=== PATIENT | female | born 1990 | race African-American/Black ===

== ENCOUNTER 2016-05-04 16:25 | Emergency (ER) | payer MEDICAID ==
[~2016-05-04] VITALS: Ht 160 cm; Wt 75.0 kg
[~2016-05-04 16:25] MED LIST: ALBU6.7H INH; BECL0.07 INH; ELVI1TAB4 PO; ELVITAB PO; FLUC200T63 PO; LEVA750T PO; PRED20 PO; SULF-154 PO; ZITH600T PO; [UNRECOGNIZED DRUG - OTHER] SWISH-SWAL
[2016-05-04 16:28] VITALS: BP 176/111; PULSE 100; RESP 20; TEMP 98.4; O2SAT 92
[2016-05-04 16:45] VITALS: RESP 16; O2SAT 92
[2016-05-04] MEDS ORDERED: methylPREDNISolone SOD SUCC 125 MG/2 ML VIAL IVP ONE (17:00)
[2016-05-04] MEDS: RESP: ALBUTEROL 2.5 MG/3 ML NEB (SCH) INH (17:07)
--- NOTE | 2016-05-04 17:08 | PD ---
HPI Chief Complaint: Respiratory Symptoms Time Seen by Provider: 17:03 Travel History International Travel<30 days: No Contact w/Intl Traveler<30days: No Traveled to known affect area: No History of Present Illness HPI 25-year-old female that presents to the ED for evaluation of shortness of breath secondary to asthma and an itchy rash. Per patient she's had the shortness of breath with asthma all her life but today she's been having worsening symptoms. Per patient she use her nebulizer this morning with some relief but per patient he always comes back. Per patient she relates that she needs to be put on steroids. She does have a history of HIV and states been compliant with her medications. Follows with infectious disease. She does not remember her CD4 count. She denies any fevers chills or sweats. He states having some mild chest pain from the cough. Per patient he feels similar to her normal asthma exacerbations. She denies any abdominal pain. No nausea or vomiting. She denies any urinary or bowel movement issues. No . Per patient one of her family members had a child that stays in her house and apparently she ended up having some sort of insect bite like lesions that were very itchy and per patient she developed some itchy lesions on her skin for the past couple days. Per patient she's not sure if is related but she's never had this before. She is not sure what the family member had. Denies any new medications. No new soaps or creams or clothes. No recent travel. PFSH Past Medical History Anemia: Yes Asthma: Yes Autoimmune Disease: Yes (HIV Dx age 18) Cancer: No Cardiovascular Problems: No COPD: No Cerebrovascular Accident: No Diminished Hearing: No Endocrine: No Genitourinary: No Headaches: Yes Immune Disorder: No Musculoskeletal: No Neurologic: Yes Psychiatric: No Reproductive: No Respiratory: Yes Migraines: No Pneumonia: Yes Seizures: No Sleep Apnea: No ?: Not : 0 Para: 0 Miscarriage: 0 : 0 Past Surgical History AICD: No Arteriovenous Shunt: No Insulin Pump: No Joint Replacement: No Pacemaker: No Other Surgery: No Social History Alcohol Use: No Tobacco Use: No Substance Use: No Allergies-Medications (Allergen,Severity, Reaction): Coded Allergies: Amoxicillin (Verified Allergy, Intermediate, 05/04/16) *MDRO Multi-Drug Resistant Organism (Verified Allergy, Unknown, 05/04/16) MRSA 12/2012 Reported Meds & Prescriptions Reported Meds & Active Scripts Active Tessalon Perles (Benzonatate) 100 Mg Cap 100 Mg PO TID PRN Vistaril (Hydroxyzine Pamoate) 25 Mg Cap 25 Mg PO Q6H PRN Bactrim DS (Sulfamethoxazole-Trimethoprim) 800-160 Mg Tab 1 Tab PO BID 7 Days Prednisone 20 Mg Tab 20 Mg PO BID Proair Hfa 8.5 GM Inh (Albuterol Sulfate) 90 Mcg/Act Aer 2 Puff INH Q4-6H PRN 108 mcg/actuation Elimite Topical (Permethrin) 5% Cream 1 Applic TOPICAL ONCE Reported Albuterol Neb (Albuterol Sulfate) 2.5 Mg/3 Ml Neb Unknown Dose NEB DIRECTED PRN While awake Stribild (Ftqrltngdrnw-Wlfpknfipu-Hzzkqrbkkvhs-Tenofvir) [phone] Mg Tab 1 Tab PO HS With food Review of Systems Except as stated in HPI: all other systems reviewed are Neg Physical Exam Narrative GENERAL: Well-nourished, well-developed patient in no apparent distress. SKIN: Warm and dry. HEAD: Atraumatic. Normocephalic. EYES: Pupils equal and round reactive to light and accommodation. No scleral icterus. No injection or drainage. ENT: No nasal bleeding or discharge. Mucous membranes pink and moist. TMs are clear with no sign of infection or perforation. No mastoid tenderness. Ear canals are intact bilaterally. No lymphadenopathy. Nostril mucosa is red and moist with clear mucus noted. No sinus tenderness to palpation noted. Tonsils are not enlarged or swollen. No ulvua Deviation. Tongue is midline. NECK: Trachea midline. No JVD. No meningeal signs noted CARDIOVASCULAR: Regular rate and rhythm. No murmurs, S3, S4. RESPIRATORY: No accessory muscle use. Wheezings heard in all lung [place]. Breath sounds equal bilaterally. Data Data Last Documented VS Vital Signs Date Time Temp Pulse Resp B/P Pulse Ox O2 Delivery O2 Flow Rate FiO2 05/04/16 19:15 120 16 118/67 97 Nasal Cannula 2 05/04/16 16:28 98.4 Orders Electrocardiogram (05/04/16 ) Basic Metabolic Panel (Bmp) (05/04/16 16:56) Complete Blood Count With Diff (05/04/16 16:56) Chest, Single Ap (05/04/16 16:56) Ecg Monitoring (05/04/16 16:56) Iv Access Insert/Monitor (05/04/16 16:56) Oximetry (05/04/16 16:56) Methylprednisolone So Succ Inj (Solumedr (05/04/16 17:00) Albuterol Neb (Albuterol Neb) (05/04/16 17:00) Labs Laboratory Tests Test 05/04/16 05/04/16 17:05 18:51 White Blood Count 5.4 TH/MM3 Red Blood Count 4.01 MIL/MM3 Hemoglobin 11.4 GM/DL Hematocrit 33.7 % Mean Corpuscular Volume 84.9 FL Mean Corpuscular Hemoglobin 29.0 PG Mean Corpuscular Hemoglobin 33.9 % Concent Red Cell Distribution Width 15.4 % Platelet Count 136 TH/MM3 Mean Platelet Volume 12.0 FL Neutrophils (%) (Auto) 67.4 % Lymphocytes (%) (Auto) 20.8 % Monocytes (%) (Auto) 7.7 % Eosinophils (%) (Auto) 3.2 % Basophils (%) (Auto) 0.9 % Neutrophils # (Auto) 3.7 TH/MM3 Lymphocytes # (Auto) 1.1 TH/MM3 Monocytes # (Auto) 0.4 TH/MM3 Eosinophils # (Auto) 0.2 TH/MM3 Basophils # (Auto) 0.1 TH/MM3 CBC Comment DIFF FINAL Differential Comment Hematology Comments Sodium Level 138 MEQ/L Potassium Level 5.6 MEQ/L Chloride Level 106 MEQ/L Carbon Dioxide Level 20.9 MEQ/L Anion Gap 11 MEQ/L Blood Urea Nitrogen 10 MG/DL Creatinine 0.80 MG/DL Estimat Glomerular Filtration 105 ML/MIN Rate Random Glucose 103 MG/DL Calcium Level 8.5 MG/DL [facility] Medical Decision Making Medical Screen Exam Complete: Yes Emergency Medical Condition: Yes Medical Record Reviewed: Yes Interpretation(s) EKG shows sinus tachycardia but no sign of acute ischemia or arrhythmia read by me and attending. CBC & BMP Diagram 05/04/16 17:05 05/04/16 18:51 Differential Diagnosis Asthma exacerbation versus asthma versus bronchitis versus COPD versus chest pain versus pneumonia Narrative Course 25-year-old female that presents to the ED for evaluation of asthma exacerbation and itchy rash. Patient was properly examined and was found to have signs and symptoms consistent appears to be asthma exacerbation with scabies. Her condition this time is for labs and imaging as well as breathing treatments. Patient agrees to proceed. Chest x-ray was negative for acute disease. Labs did show slight hyperkalemia but there was a lot of hemolyzes per lab report. Patient apparently had to have 3 different problems all hemolyzed. Patient has no changes of hyperkalemia on EKG. I do not believe that this is a true value. Case discussed with Dr. Ramsay who agrees with plan. I will start patient on Bactrim to cover for PCP although less likely. This appears to me to be bronchitis with asthma exacerbation. Patient was given prednisone, albuterol inhaler, permethrin cream for the scabies, Tessalon Perles for the cough. Vistaril for the itch. Patient was told to follow closely with PCP. See ED for any worsening symptoms. Diagnosis Primary Impression: Asthma exacerbation Additional Impression: Scabies Patient Instructions: General Instructions Additional Instructions: Take medications as prescribed. Follow with PCP. See ED for any worsening symptoms. Med/Other Pt SpecificInfo: Prescription(s) given Scripts Benzonatate (Tessalon Perles)100 Mg Nzl300 Mg PO TID PRN (COUGH) #20 CAP Ref 0 Prov:Luis Goddard MD 05/04/16 Hydroxyzine Pamoate (Vistaril)25 Mg Cap25 Mg PO Q6H PRN (ITCHING) #15 CAP Ref 0 Prov:Luis Goddard MD 05/04/16 Sulfamethoxazole-Trimethoprim (Bactrim DS)800-160 Mg Tab1 Tab PO BID 7 Days Prov:Luis Goddard MD 05/04/16 Prednisone 20 Mg Tab20 Mg PO BID #10 TAB Prov:Luis Goddard MD 05/04/16 Albuterol 8.5 GM Inh (Proair Hfa 8.5 GM Inh)90 Mcg/Act Aer2 Puff INH Q4-6H PRN ( SHORTNESS OF BREATH) #1 INHALER 108 mcg/actuation Prov:Luis Goddard MD 05/04/16 Permethrin Topical (Elimite Topical)5% Cream1 Applic TOPICAL ONCE #1 TUBE Ref 0 Prov:Luis Goddard MD 05/04/16 Disposition: 01 DISCHARGE HOME Condition: Stable Brando Howell May 04, 2016 17:08
[2016-05-04 17:17] LABS: AUTOMATED NEUTROPHIL # 3.7 TH/MM3 (1.8-7.7); BASOPHIL # 0.1 TH/MM3 (0-0.2); BASOPHIL % 0.9 % (0.0-2.0); EOSINOPHIL # 0.2 TH/MM3 (0-0.4); EOSINOPHIL % 3.2 % (0.0-4.0); LYMPH % 20.8 % (9.0-44.0); LYMPHOCYTE # 1.1 TH/MM3 (1.0-4.8); MEAN CELL VOLUME 84.9 FL (80.0-100.0); MONO % 7.7 % (0.0-8.0); NEUT % 67.4 % (16.0-70.0); PLATELET COUNT 136 TH/MM3 (150-450); RED BLOOD COUNT 4.01 MIL/MM3 (4.00-5.30); RED CELL DISTRIBUTION WIDTH 15.4 % (11.6-17.2); WHITE BLOOD COUNT 5.4 TH/MM3 (4.0-11.0)
--- NOTE | 2016-05-04 17:23 | RADRPT ---
EXAM DATE/TIME: 05/04/2016 17:06 [facility] COMPARISON: CHEST SINGLE AP, August 27, 2015, 8:37. INDICATIONS : Cough for over one year with history of asthma. MEDICAL HISTORY : Asthma SURGICAL HISTORY : ENCOUNTER: Initial ACUITY: >1 year PAIN SCORE: 0/10 LOCATION: Bilateral chest FINDINGS: Examination is performed with patients bra on. A single view of the chest demonstrates the lungs to be symmetrically aerated without evidence of mass, infiltrate or effusion. The cardiomediastinal con tours are unremarkable. Healed fractures of the posterolateral right 6th and 7th ribs.. CONCLUSION: The lungs are clear. The no evidence of pneumothorax. Blake Ramirez MD on May 04, 2016 at 17:20 Board Certified Radiologist. This report was verified electronically.
[2016-05-04 17:31] LABS: HEMATOCRIT 33.7 % (35.0-46.0); HEMO FLAGS DIFF FINAL; MEAN CORPUSCULAR HGB CONC 33.9 % (32.0-36.0)
[2016-05-04] MEDS ORDERED: ELVITAB PO (17:36)
[2016-05-04] MEDS ORDERED: ALBU0.08 NEB (17:39)
[2016-05-04] MEDS ORDERED: AZIT250T3 PO (18:20)
[2016-05-04] MEDS ORDERED: PERM5CRE11 TOPICAL (18:20)
[2016-05-04] MEDS ORDERED: PRED20 PO (18:20)
[2016-05-04] MEDS ORDERED: ALBUAER3 INH (18:20)
[2016-05-04 19:15] VITALS: BP 118/67; PULSE 120; RESP 16; O2SAT 97
[2016-05-04 19:40] LABS: BICARBONATE 20.9 MEQ/L (21.0-32.0)
[2016-05-04 19:43] LABS: POTASSIUM 5.6 MEQ/L (3.5-5.1)
[2016-05-04] MEDS ORDERED: BENZ100 PO (19:54)
[2016-05-04] MEDS ORDERED: VIST25CA PO (19:54)
[2016-05-04] MEDS ORDERED: BACT800T5 PO (19:54)
--- NOTE | 2016-05-04 21:06 | EKG ---
Date Performed: 05/04/2016 Time Performed: 16:48:29 PTAGE: 25 years EKG: SINUS TACHYCARDIA WITH SINUS ARRHYTHMIA ABNORMAL RHYTHM ECG PREVIOUS TRACING : 08/31/2015 09.40 No significant change from previous tracing noted. DOCTOR: Ming Macias Interpretating Date/Time 05/04/2016 21:05:53
== END 2016-05-04 20:08 | disposition home or self-care (01) ==
LOC: NEPC 16:25
DX: J45.901 Unspecified asthma with (acute) exacerbation (principal); B86 Scabies; R07.9 Chest pain, unspecified; R94.31 Abnormal electrocardiogram [ECG] [EKG]; Z21 Asymptomatic human immunodeficiency virus [HIV] infection status; Z86.2 Personal history of diseases of the blood and blood-forming organs and certain disorders involving the immune mechanism; Z86.69 Personal history of other diseases of the nervous system and sense organs; Z87.09 Personal history of other diseases of the respiratory system
CPT/HCPCS: 71010; 80048; 85025; 93005; 94640; 94664; 96374; 99285; J2930; J7613

== ENCOUNTER 2016-05-23 23:47 | Emergency (ER) | payer MEDICAID ==
[~2016-05-23] VITALS: Ht 162.6 cm; Wt 74.0 kg
[~2016-05-23 23:47] MED LIST changes: +ALBU0.08 NEB; -ALBU6.7H INH; +ALBUAER3 INH; +BACT800T5 PO; -BECL0.07 INH; +BENZ100 PO; -ELVI1TAB4 PO; -FLUC200T63 PO; -LEVA750T PO; +PERM5CRE11 TOPICAL; -SULF-154 PO; +VIST25CA PO; -ZITH600T PO; -[UNRECOGNIZED DRUG - OTHER] SWISH-SWAL
[2016-05-23 23:54] VITALS: BP 126/82; PULSE 98; RESP 18; TEMP 98.2; O2SAT 96
--- NOTE | 2016-05-24 03:30 | RADRPT ---
EXAM DATE/TIME: 05/24/2016 03:08 [facility] COMPARISON: CHEST PA & LAT, August 31, 2015, 10:27. INDICATIONS : Cough. MEDICAL HISTORY : Asthma. SURGICAL HISTORY : None. ENCOUNTER: Initial ACUITY: 1 day PAIN SCORE: 0/10 LOCATION: Bilateral chest FINDINGS: PA and lateral views of the chest demonstrate the lungs to be symmetrically aerated without evidence of mass, infiltrate or effusion. The cardiomediastinal contours are unremarkable. Osseous structure s demonstrate old right-sided rib fractures. CONCLUSION: 1. No acute cardiopulmonary disease. Ronan Sanders MD on May 24, 2016 at 3:28 Board Certified Radiologist. This report was verified electronically.
--- NOTE | 2016-05-24 03:53 | PD ---
HPI . Hemoptysis Chief Complaint: Abdominal Pain Time Seen by Provider: 02:36 Travel History International Travel<30 days: No Contact w/Intl Traveler<30days: No Traveled to known affect area: No History of Present Illness HPI Patient presents stating that she has a history of asthma and always coughs up mucus. She states that her mucous has been blood-tinged tonight. She states that she otherwise feels well. She complained of abdominal pain in triage. PFSH Past Medical History Anemia: Yes Asthma: Yes Autoimmune Disease: Yes (HIV Dx age 18) Cancer: No Cardiovascular Problems: No COPD: No Cerebrovascular Accident: No Diminished Hearing: No Endocrine: No Genitourinary: No Headaches: Yes Immune Disorder: No Musculoskeletal: No Neurologic: Yes Psychiatric: No Reproductive: No Respiratory: Yes Migraines: No Pneumonia: Yes Seizures: No Sleep Apnea: No ?: Unknown LMP: 2 MONTHS AGO--STS SHE DOESN'T HAVE SEX WITH MALES : 0 Para: 0 Miscarriage: 0 : 0 Past Surgical History Surgical History: No Previous Surgery AICD: No Arteriovenous Shunt: No Insulin Pump: No Joint Replacement: No Pacemaker: No Other Surgery: No Social History Alcohol Use: No Tobacco Use: No Substance Use: No Allergies-Medications (Allergen,Severity, Reaction): Coded Allergies: Amoxicillin (Verified Allergy, Intermediate, 05/24/16) *MDRO Multi-Drug Resistant Organism (Verified Allergy, Unknown, 05/24/16) MRSA 12/2012 Reported Meds & Prescriptions Reported Meds & Active Scripts Active Proair Hfa 8.5 GM Inh (Albuterol Sulfate) 90 Mcg/Act Aer 2 Puff INH Q4-6H PRN 108 mcg/actuation Review of Systems Except as stated in HPI: all other systems reviewed are Neg General / Constitutional: No: Fever, Chills HENT: Positive: Congestion Respiratory: Positive: Cough, Hemoptysis Gastrointestinal: Positive: Abdominal Pain, No: Nausea, Vomiting, Diarrhea Physical Exam Narrative GENERAL: Healthy-appearing woman lying on the stretcher in no acute distress. SKIN: Warm and dry. HEAD: Atraumatic. Normocephalic. EYES: Pupils equal and round. ENT: No nasal bleeding or discharge. Mucous membranes pink and moist. She has some edema of the nasal mucosa and some clear rhinorrhea. NECK: Trachea midline. Neck is supple. CARDIOVASCULAR: Regular rate and rhythm. Heart sounds are normal. RESPIRATORY: No accessory muscle use. Lungs are clear. GASTROINTESTINAL: Abdomen soft, non-tender, nondistended. MUSCULOSKELETAL: No obvious deformities. No edema. NEUROLOGICAL: Awake and alert. No obvious cranial nerve deficits. Motor grossly within normal limits. Normal speech. PSYCHIATRIC: Appropriate mood and affect; insight and judgment normal. Data Data Last Documented VS Vital Signs Date Time Temp Pulse Resp B/P Pulse Ox O2 Delivery O2 Flow Rate FiO2 05/23/16 23:54 98.2 98 18 126/82 96 Room Air Orders Chest, Pa & Lat (05/24/16 02:36) Ed Urine Pregnancytest Poc (05/24/16 02:36) MDM Medical Decision Making Medical Screen Exam Complete: Yes Emergency Medical Condition: Yes Differential Diagnosis Differential diagnosis includes but is not limited to viral respiratory illness , bronchitis, pneumonia, allergies, CHF, asthma/COPD. Narrative Course Patient presents for evaluation of hemoptysis. She has been here for a few hours and has had no significant hemoptysis. Last Impressions Chest X-Ray 05/24/16 0236 Signed Impressions: Service Date/Time: Tuesday, May 24, 2016 03:08 - CONCLUSION: 1. No acute cardiopulmonary disease. Ronan Sanders MD The chest x-ray was independently viewed by me. Diagnosis Primary Impression: Cough Additional Impression: Hemoptysis Patient Instructions: Acute Cough (GEN), General Instructions Disposition: 01 DISCHARGE HOME Condition: Stable Xenia Esparza MD May 24, 2016 03:53
== END 2016-05-24 04:24 | disposition home or self-care (01) ==
LOC: NEPC 23:47
DX: R04.2 Hemoptysis (principal)
CPT/HCPCS: 71020; 99283

== ENCOUNTER 2016-07-02 13:43 | Emergency (ER) | payer MEDICAID ==
[~2016-07-02] VITALS: Ht 162.6 cm; Wt 70.0 kg
[~2016-07-02 13:43] MED LIST changes: -ALBU0.08 NEB; -BACT800T5 PO; -BENZ100 PO; -ELVITAB PO; -PERM5CRE11 TOPICAL; -PRED20 PO; -VIST25CA PO
[2016-07-02 13:45] VITALS: BP 148/70; PULSE 120; RESP 18; TEMP 97.9; O2SAT 97
== END 2016-07-02 15:45 | disposition left against medical advice (07) ==
LOC: NED 13:43
DX: R10.9 Unspecified abdominal pain (principal)
CPT/HCPCS: 99281

== ENCOUNTER 2016-09-01 14:35 | Emergency (ER) | payer MEDICAID ==
[~2016-09-01] VITALS: Ht 160 cm; Wt 75.0 kg
[2016-09-01 14:36] VITALS: BP 140/89; PULSE 94; RESP 16; TEMP 97.8; O2SAT 99
--- NOTE | 2016-09-01 14:45 | PD ---
HPI . Left-sided abdominal pain Chief Complaint: Flank/Kidney Pain Time Seen by Provider: 14:42 Travel History International Travel<30 days: No Contact w/Intl Traveler<30days: No Traveled to known affect area: No History of Present Illness HPI 25-year-old female with history of HIV, asthma and kidney stones here with complaints of left-sided flank pain that onset early this morning. Patient says that she had similar happened back in 2009 and was diagnosed with kidney stones. She tells me the pain was very severe and she took Tylenol PM and now her pain is 6/10 without any further radiation other than in the left flank. She denies any dysuria, increased urinary frequency, fever or chills. She has no other complaints. PFSH Past Medical History Anemia: Yes Asthma: Yes Autoimmune Disease: Yes (HIV Dx age 18) Cancer: No Cardiovascular Problems: No COPD: No Cerebrovascular Accident: No Diminished Hearing: No Endocrine: No Genitourinary: No Headaches: Yes Immune Disorder: No Musculoskeletal: No Neurologic: Yes Psychiatric: No Reproductive: No Respiratory: Yes Migraines: No Pneumonia: Yes Seizures: No Sleep Apnea: No ?: Not LMP: THIS MONTH : 0 Para: 0 Miscarriage: 0 : 0 Past Surgical History AICD: No Arteriovenous Shunt: No Insulin Pump: No Joint Replacement: No Pacemaker: No Other Surgery: No Social History Alcohol Use: No Tobacco Use: No Substance Use: No Allergies-Medications (Allergen,Severity, Reaction): Coded Allergies: Amoxicillin (Verified Allergy, Intermediate, 09/01/16) *MDRO Multi-Drug Resistant Organism (Verified Allergy, Unknown, 09/01/16) MRSA 12/2012 Reported Meds & Prescriptions Reported Meds & Active Scripts Active Flomax (Tamsulosin HCl) 0.4 Mg Cap 0.4 Mg PO HS Bactrim DS (Sulfamethoxazole-Trimethoprim) 800-160 Mg Tab 1 Tab PO BID Percocet (Oxycodone-Acetaminophen) 5-325 mg Tab 1 Tab PO Q6H PRN Proair Hfa 8.5 GM Inh (Albuterol Sulfate) 90 Mcg/Act Aer 2 Puff INH Q4-6H PRN 108 mcg/actuation Review of Systems General / Constitutional: No: Fever Eyes: No: Visual changes HENT: No: Headaches Cardiovascular: No: Chest Pain or Discomfort Respiratory: No: Shortness of Breath Gastrointestinal: Positive: Abdominal Pain (left sided), No: Nausea, Vomiting , Diarrhea, Constipation Genitourinary: No: Dysuria Musculoskeletal: No: Pain Skin: No Rash Neurologic: No: Weakness Psychiatric: No: Depression Endocrine: No: Polydipsia Hematologic/Lymphatic: No: Easy Bruising Physical Exam Narrative GENERAL: AAO x 3, no acute distress, Well-nourished, well-developed patient. SKIN: Warm and dry. No visible rashes or bruising. HEAD: Normocephalic and atraumatic. EYES: No scleral icterus. No injection or drainage. ENT: No nasal drainage noted. Mucous membranes pink. Airway patent. NECK: Supple, trachea midline. No JVD. CARDIOVASCULAR: Regular rate and rhythm without murmurs, gallops, or rubs. RESPIRATORY: Breath sounds equal bilaterally. No accessory muscle use. No rhonchi or rales. GASTROINTESTINAL: Abdomen soft, + tenderness to left mid/lower abdomen with deep palpation. EXTREMITIES: No cyanosis or edema. BACK: Nontender without obvious deformity. No CVA tenderness. PSYCH: AAO x 3, normal affect. Data Data Last Documented VS Vital Signs Date Time Temp Pulse Resp B/P Pulse Ox O2 Delivery O2 Flow Rate FiO2 09/01/16 17:22 75 14 115/89 96 Room Air 09/01/16 14:36 97.8 Orders Complete Blood Count With Diff (09/01/16 14:45) Comprehensive Metabolic Panel (09/01/16 14:45) Urinalysis - C+S If Indicated (09/01/16 14:45) Ct Abd/Pel W Iv Contrast(Rout) (09/01/16 14:45) Iv Access Insert/Monitor (09/01/16 14:45) NPO (09/01/16 14:45) Ed Urine Pregnancytest Poc (09/01/16 14:45) Ibuprofen (Motrin) (09/01/16 15:00) Oral Contrast - Adult (09/01/16 14:50) Diatrizoate Liq ( Gastroview Liq) (09/01/16 15:25) Iohexol 350 Inj (Omnipaque 350 Inj) (09/01/16 16:52) Urine Culture (09/01/16 16:50) Ceftriaxone Inj (Rocephin Inj) (09/01/16 17:30) Morphine Inj (Morphine Inj) (09/01/16 17:30) Fluconazole (Diflucan) (09/01/16 17:45) Labs Laboratory Tests Test 09/01/16 09/01/16 15:22 16:50 White Blood Count 4.0 TH/MM3 Red Blood Count 3.94 MIL/MM3 Hemoglobin 11.3 GM/DL Hematocrit 34.0 % Mean Corpuscular Volume 86.2 FL Mean Corpuscular Hemoglobin 28.6 PG Mean Corpuscular Hemoglobin 33.2 % Concent Red Cell Distribution Width 17.1 % Platelet Count 100 TH/MM3 Mean Platelet Volume 11.1 FL Neutrophils (%) (Auto) 73.8 % Lymphocytes (%) (Auto) 12.3 % Monocytes (%) (Auto) 9.7 % Eosinophils (%) (Auto) 3.6 % Basophils (%) (Auto) 0.6 % Neutrophils # (Auto) 3.0 TH/MM3 Lymphocytes # (Auto) 0.5 TH/MM3 Monocytes # (Auto) 0.4 TH/MM3 Eosinophils # (Auto) 0.1 TH/MM3 Basophils # (Auto) 0.0 TH/MM3 CBC Comment DIFF FINAL Differential Comment Sodium Level 141 MEQ/L Potassium Level 4.1 MEQ/L Chloride Level 107 MEQ/L Carbon Dioxide Level 26.1 MEQ/L Anion Gap 8 MEQ/L Blood Urea Nitrogen 7 MG/DL Creatinine 0.93 MG/DL Estimat Glomerular Filtration 88 ML/MIN Rate Random Glucose 91 MG/DL Calcium Level 8.6 MG/DL Total Bilirubin 0.3 MG/DL Aspartate Amino Transf 51 U/L (AST/SGOT) Alanine Aminotransferase 33 U/L (ALT/SGPT) Alkaline Phosphatase 74 U/L Total Protein 6.8 GM/DL Albumin 3.5 GM/DL Urine Color LIGHT-YELLOW Urine Turbidity CLEAR Urine pH 6.5 Urine Specific [place] 1.014 Urine Protein NEG mg/dL Urine Glucose (UA) NEG mg/dL Urine Ketones NEG mg/dL Urine Occult Blood MOD Urine Nitrite NEG Urine Bilirubin NEG Urine Urobilinogen LESS THAN 2.0 MG/DL Urine Leukocyte Esterase TRACE Urine RBC 3 /hpf Urine WBC 5 /hpf Urine Squamous Epithelial 1 /hpf Cells Urine Bacteria MOD /hpf Urine Yeast (Budding) RARE Microscopic Urinalysis Comment CULTURE INDICATED MDM Medical Decision Making Medical Screen Exam Complete: Yes Emergency Medical Condition: Yes Medical Record Reviewed: Yes Differential Diagnosis Nephrolithiasis, urinary tract infection, pyelonephritis Narrative Course 25 yr old female with history of asthma and nephrolithiasis here with sudden onset of left-sided abdominal pain. She may be having a recurrent episode of nephrolithiasis, labs and CT scan have been ordered. I provided her ibuprofen for pain control. 1727: Acute obstructive uropathy of the left mid ureter secondary to a 3 mm calcified calculus at the L4 level resulting in mild ureteropelvocaliectasis on the left. 2. Multiple calcified nonobstructing bilateral renal calculi are noted. The largest nonobstructing calculus is noted within the upper pole the right kidney Patient felt to need admission and urology consult, call placed, awaiting call back. Patient given morphine for pain control and started on Rocephin. Last Impressions Abdomen/Pelvis CT 09/01/16 1445 Signed Impressions: Service Date/Time: Thursday, September 01, 2016 16:36 - CONCLUSION: 1. Acute obstructive uropathy of the left mid ureter secondary to a 3 mm calcified calculus at the L4 level resulting in mild ureteropelvocaliectasis on the left. 2. Multiple calcified nonobstructing bilateral renal calculi are noted. The largest nonobstructing calculus is noted within the upper pole the right kidney measuring 6 mm. Tawanda Vasquez MD Laboratory Tests Test 09/01/16 09/01/16 15:22 16:50 White Blood Count 4.0 TH/MM3 Red Blood Count 3.94 MIL/MM3 Hemoglobin 11.3 GM/DL Hematocrit 34.0 % Mean Corpuscular Volume 86.2 FL Mean Corpuscular Hemoglobin 28.6 PG Mean Corpuscular Hemoglobin 33.2 % Concent Red Cell Distribution Width 17.1 % Platelet Count 100 TH/MM3 Mean Platelet Volume 11.1 FL Neutrophils (%) (Auto) 73.8 % Lymphocytes (%) (Auto) 12.3 % Monocytes (%) (Auto) 9.7 % Eosinophils (%) (Auto) 3.6 % Basophils (%) (Auto) 0.6 % Neutrophils # (Auto) 3.0 TH/MM3 Lymphocytes # (Auto) 0.5 TH/MM3 Monocytes # (Auto) 0.4 TH/MM3 Eosinophils # (Auto) 0.1 TH/MM3 Basophils # (Auto) 0.0 TH/MM3 CBC Comment DIFF FINAL Differential Comment Sodium Level 141 MEQ/L Potassium Level 4.1 MEQ/L Chloride Level 107 MEQ/L Carbon Dioxide Level 26.1 MEQ/L Anion Gap 8 MEQ/L Blood Urea Nitrogen 7 MG/DL Creatinine 0.93 MG/DL Estimat Glomerular Filtration 88 ML/MIN Rate Random Glucose 91 MG/DL Calcium Level 8.6 MG/DL Total Bilirubin 0.3 MG/DL Aspartate Amino Transf 51 U/L (AST/SGOT) Alanine Aminotransferase 33 U/L (ALT/SGPT) Alkaline Phosphatase 74 U/L Total Protein 6.8 GM/DL Albumin 3.5 GM/DL Urine Color LIGHT-YELLOW Urine Turbidity CLEAR Urine pH 6.5 Urine Specific [place] 1.014 Urine Protein NEG mg/dL Urine Glucose (UA) NEG mg/dL Urine Ketones NEG mg/dL Urine Occult Blood MOD Urine Nitrite NEG Urine Bilirubin NEG Urine Urobilinogen LESS THAN 2.0 MG/DL Urine Leukocyte Esterase TRACE Urine RBC 3 /hpf Urine WBC 5 /hpf Urine Squamous Epithelial 1 /hpf Cells Urine Bacteria MOD /hpf Urine Yeast (Budding) RARE Microscopic Urinalysis Comment CULTURE INDICATED 1738: Discussed with Dr. Gagnon, he was made aware of all findings. He recommends outpatient treatment with antibiotics and pain medications. Recommends using a strainer and outpatient f/u in his office. We have canceled call back for admission. Patient is hemodynamically stable and in no signs of distress. Discussed with Dr. Kwan who is in agreement. Discussed with patient and she is in agreement. She had an ID appointment to get placed on HAART treatment and was worried about missing it. Patient verbalized understanding of instructions, questions were answered, and thanked me for their care. I advised them if their condition worsens, please return to the nearest emergency room for further care. Diagnosis Primary Impression: Obstructive uropathy Additional Impression: Urinary tract infection Qualified Code: N39.0 - Urinary tract infection with hematuria, site unspecified Admitting Information Admitting Physician Requests: Admit Referrals: Grant Gagnon MD Patient Instructions: General Instructions Additional Instructions: Please return to emergency department if your symptoms return or worsen. Follow up with your primary care provider. Take medications as prescribed. Please follow-up with the urologist as we discussed. His information has been added to this packet. Strain all your urine. Save kidney stone if found. Med/Other Pt SpecificInfo: Prescription(s) given Scripts Tamsulosin (Flomax)0.4 Mg Cap0.4 Mg PO HS #12 CAP Ref 0 Prov:Livan Kwan MD 09/01/16 Sulfamethoxazole-Trimethoprim (Bactrim DS)800-160 Mg Tab1 Tab PO BID #14 TAB Ref 0 Prov:Livan Kwan MD 09/01/16 Oxycodone-Acetaminophen (Percocet)5-325 mg Tab1 Tab PO Q6H PRN (PAIN) #12 TAB Ref 0 Prov:Livan Kwan MD 09/01/16 Disposition: 01 DISCHARGE HOME Condition: Stable [place] Min September 01, 2016 14:45
[2016-09-01] MEDS ORDERED: IBUPROFEN 800 MG TAB PO ONE (15:00)
[2016-09-01 15:12] VITALS: BP 117/69; PULSE 86; RESP 16; O2SAT 95
[2016-09-01] MEDS ORDERED: DIATRIZOATE MEGLUM/DIATRIZOATE SOD 9 ML CUP ONE (15:25)
[2016-09-01 15:42] LABS: BASOPHIL % 0.6 % (0.0-2.0); EOSINOPHIL # 0.1 TH/MM3 (0-0.4); EOSINOPHIL % 3.6 % (0.0-4.0); HEMO FLAGS DIFF FINAL; LYMPH % 12.3 % (9.0-44.0); LYMPHOCYTE # 0.5 TH/MM3 (1.0-4.8); MEAN CELL VOLUME 86.2 FL (80.0-100.0); MEAN CORPUSCULAR HEMOGLOBIN 28.6 PG (27.0-34.0); MEAN CORPUSCULAR HGB CONC 33.2 % (32.0-36.0); MONO % 9.7 % (0.0-8.0); NEUT % 73.8 % (16.0-70.0); PLATELET COUNT 100 TH/MM3 (150-450); RED BLOOD COUNT 3.94 MIL/MM3 (4.00-5.30); RED CELL DISTRIBUTION WIDTH 17.1 % (11.6-17.2)
[2016-09-01 16:09] LABS: ALKALINE PHOSPHATASE 74 U/L (45-117); TOTAL BILIRUBIN ADULT 0.3 MG/DL (0.2-1.0)
[2016-09-01 16:35] LABS: ALT (GPT) 33 U/L (10-53); ANION GAP 8 MEQ/L (5-15); AST (GOT) 51 U/L (15-37); BICARBONATE 26.1 MEQ/L (21.0-32.0); BLOOD UREA NITROGEN 7 MG/DL (7-18); CHLORIDE 107 MEQ/L (98-107); GLOMERULAR FILTRATION RATE 88 ML/MIN (>89); POTASSIUM 4.1 MEQ/L (3.5-5.1); SODIUM (NA) 141 MEQ/L (136-145)
[2016-09-01] MEDS ORDERED: IOHEXOL 350 MG/ML 10 ML VIAL (for RAD DIAG) IV ONE (16:52)
--- NOTE | 2016-09-01 17:01 | RADRPT ---
EXAM DATE/TIME: 09/01/2016 16:36 [facility] COMPARISON: CT ABDOMEN & PELVIS W CONTRAST, October 21, 2011, 11:42. INDICATIONS : Left abdomen pain. IV CONTRAST: 95 cc Omnipaque 350 (iohexol) IV ORAL CONTRAST: Prescribed oral contrast ingested. RADIATION DOSE: 9.02 CTDIvol (mGy) MEDICAL HISTORY : HIV. SURGICAL HISTORY : None. ENCOUNTER: Initial ACUITY: 1 day PAIN SCALE: 4/10 LOCATION: Left flank TECHNIQUE: Volumetric scanning of the abdomen and pelvis was performed. Using automated exposure control and ad justment of the mA and/or kV according to patient size, radiation dose was kept as low as reasonably achievable to obtain optimal diagnostic quality images. FINDINGS: LOWER LUNGS: The visualized lower lungs are clear. LIVER: Homogeneous density without lesion. There is no dilation of the biliary tree. No calcified gallston es. SPLEEN: Normal size without lesion. PANCREAS: Within normal limits. KIDNEYS: There is acute obstructive uropathy of the left mid ureter secondary to a 3 mm calcified calculus at the L4 level resulting in mild ureteropelvocaliectasis on the left. Multiple calcified nonobstructing bilateral renal calculi are noted. The largest nonobstructing calculus is noted within the upper magda e the right kidney measuring 6 mm. ADRENAL GLANDS: Within normal limits. VASCULAR: There is no aortic aneurysm. BOWEL/MESENTERY: The stomach, small bowel, and colon demonstrate no acute abnormality. There is no free intraperitone al air or fluid. ABDOMINAL WALL: Within normal limits. RETROPERITONEUM: There is no lymphadenopathy. BLADDER: No wall thickening or mass. REPRODUCTIVE: Within normal limits. INGUINAL: There is no lymphadenopathy or hernia. MUSCULOSKELETAL: Within normal limits for patient age. CONCLUSION: 1. Acute obstructive uropathy of the left mid ureter secondary to a 3 mm calcified calculus at the L4 level resulting in mild ureteropelvocaliectasis on the left. 2. Multiple calcified nonobstructing bilateral renal calculi are noted. The largest nonobstructing ca lculus is noted within the upper pole the right kidney measuring 6 mm. Tawanda Vasquez MD on September 01, 2016 at 16:48 Board Certified Radiologist. This report was verified electronically.
[2016-09-01 17:19] LABS: BACTERIA, URINE MOD /hpf; BLOOD, URINE MOD (NEG); COMMENT (UR) CULTURE INDICATED; CULTURE IF INDICATED CULTURE INDICATED; GLUCOSE,URINE NEG (NEG); KETONE, URINE NEG (NEG); NITRITE,URINE NEG (NEG); PH, URINE 6.5 (5.0-8.5); SQUAMOUS EPITHELIAL CELL URINE 1 /hpf (0-5); URINE COLOR LIGHT-YELLOW (YELLW/STRAW)
[2016-09-01 17:22] VITALS: BP 115/89; PULSE 75; RESP 14; O2SAT 96
[2016-09-01] MEDS ORDERED: cefTRIAXone INJ 1,000 MG in SODIUM CHLORIDE 0.9% INJ 100 ML IV ONE (17:30)
[2016-09-01] MEDS ORDERED: MORPHINE SULFATE 4 MG/ML INJ IV PUSH ONE (17:30)
[2016-09-01] MEDS ORDERED: PERC5TAB12 PO ×2 (17:44→17:45)
[2016-09-01] MEDS ORDERED: BACT800T5 PO ×2 (17:44→17:45)
[2016-09-01] MEDS ORDERED: FLUCONAZOLE 100 MG TAB PO ONE (17:45)
[2016-09-01] MEDS ORDERED: TAMS5CAP PO (17:45)
== END 2016-09-01 18:14 | disposition home or self-care (01) ==
LOC: NEPD 14:35
DX: N13.9 Obstructive and reflux uropathy, unspecified (principal); N39.0 Urinary tract infection, site not specified; J45.909 Unspecified asthma, uncomplicated; D64.9 Anemia, unspecified
CPT/HCPCS: 74177; 80053; 81001; 84703; 85025; 87086; 96365; 96374; 99285; J0696; J2270; Q9963; Q9967

== ENCOUNTER 2016-09-12 09:50 | Emergency (ER) | payer MEDICAID ==
[~2016-09-12] VITALS: Ht 162.6 cm; Wt 80.0 kg
[~2016-09-12 09:50] MED LIST changes: +BACT800T5 PO; +PERC5TAB12 PO; +TAMS5CAP PO
[2016-09-12 09:53] VITALS: BP 137/102; PULSE 96; RESP 24; TEMP 98.2; O2SAT 98
[2016-09-12 10:22] VITALS: BP 169/92; PULSE 99
[2016-09-12] MEDS ORDERED: MAGICPED SWISH-SPIT (10:22)
[2016-09-12] MEDS ORDERED: AZIT500T2 PO (10:22)
[2016-09-12] MEDS ORDERED: IBUP800T23 PO (10:22)
--- NOTE | 2016-09-12 10:23 | PD ---
HPI Chief Complaint: ENT Complaint Time Seen by Provider: 10:19 Travel History International Travel<30 days: No Contact w/Intl Traveler<30days: No Traveled to known affect area: No History of Present Illness HPI 25-year-old female presents emergency Department with complaint of sore throat that started last night. She has been sick with nasal congestion and cough for the past few days. Denies ear pain. Denies lump in throat, difficulty swallowing, unusual drooling. Reports painful swallowing. Denies fever, vomiting. Has taken Tylenol with no relief of symptoms. He is not tried any other treatments for medications to alleviate her symptoms. Allergies to amoxicillin. Has no other medical complaints. No other modifying factors or associated signs and symptoms. PFSH Past Medical History Anemia: Yes Asthma: Yes Autoimmune Disease: Yes (HIV Dx age 18) Cancer: No Cardiovascular Problems: No COPD: No Cerebrovascular Accident: No Diminished Hearing: No Endocrine: No Genitourinary: No Headaches: Yes Immune Disorder: No Musculoskeletal: No Neurologic: Yes Psychiatric: No Reproductive: No Respiratory: Yes (BRONCHITIS) Migraines: No Pneumonia: Yes Seizures: No Sleep Apnea: No ?: Not : 0 Para: 0 Miscarriage: 0 : 0 Past Surgical History AICD: No Arteriovenous Shunt: No Insulin Pump: No Joint Replacement: No Pacemaker: No Other Surgery: No Social History Alcohol Use: No Tobacco Use: No Substance Use: No Allergies-Medications (Allergen,Severity, Reaction): Coded Allergies: Amoxicillin (Verified Allergy, Intermediate, 09/01/16) *MDRO Multi-Drug Resistant Organism (Verified Allergy, Unknown, 09/01/16) MRSA 12/2012 Reported Meds & Prescriptions Reported Meds & Active Scripts Active Ibuprofen 800 Mg Tab 800 Mg PO Q6HR PRN Magic Mouthwash Pediatric/Adult Liq (Lidocaine/Diphenhydr/Alum/Mg/Simeth) 60 Ml Susp 5 Ml SWISH-SPIT Q3HR PRN Each 5mL contains: Diphenydramine 4.5mg, Viscous Lidocaine 2% 10mg, Maalox Advanced Regular Strength 2.7ml Azithromycin 500 Mg Tab 500 Mg PO DAILY Flomax (Tamsulosin HCl) 0.4 Mg Cap 0.4 Mg PO HS Bactrim DS (Sulfamethoxazole-Trimethoprim) 800-160 Mg Tab 1 Tab PO BID Percocet (Oxycodone-Acetaminophen) 5-325 mg Tab 1 Tab PO Q6H PRN Proair Hfa 8.5 GM Inh (Albuterol Sulfate) 90 Mcg/Act Aer 2 Puff INH Q4-6H PRN 108 mcg/actuation Review of Systems Except as stated in HPI: all other systems reviewed are Neg Physical Exam Narrative GENERAL: Well-nourished, well-developed female patient, in no acute distress; afebrile, nontoxic-appearing SKIN: Warm and dry. No rash. HEAD: Atraumatic. Normocephalic. EYES: Pupils equal and round. No scleral icterus. No injection or drainage. ENT: Mucosa pink and moist. No erythema or exudates. No uvular edema. No uvular , palatal, or tonsillar deviation. Airway patent. EARS: Bilateral pinnae and external canals appear within normal limits. Right tympanic membranes without erythema, dullness or perforation. Left tympanic membrane with erythema, dullness, loss of landmarks. NECK: Trachea midline. No lymphadenopathy. CARDIOVASCULAR: Regular rate. RESPIRATORY: No accessory muscle use. GASTROINTESTINAL: Rounded. MUSCULOSKELETAL: No obvious deformities. No clubbing. No cyanosis. No edema. NEUROLOGICAL: Awake and alert. Oriented 3. No obvious cranial nerve deficits. Motor grossly within normal limits. Normal speech. Moves all extremities. 5/5 strength to all extremities. PSYCHIATRIC: Appropriate mood and affect; insight and judgment normal. Data Data Last Documented VS Vital Signs Date Time Temp Pulse Resp B/P Pulse Ox O2 Delivery O2 Flow Rate FiO2 09/12/16 10:22 99 169/92 09/12/16 09:53 98.2 24 98 Room Air Orders Ibuprofen (Motrin) (09/12/16 10:30) Group A Rapid Strep Screen (09/12/16 10:36) Strep Culture (Group A) (09/12/16 10:38) [facility] Medical Decision Making Medical Screen Exam Complete: Yes Emergency Medical Condition: Yes Medical Record Reviewed: Yes Differential Diagnosis Strep pharyngitis, viral pharyngitis, viral illness, less likely peritonsillar abscess Narrative Course 25-year-old female physical exam consistent with left otitis media and sore throat. She is afebrile and nontoxic-appearing. Denies fever, vomiting. Allergies to amoxicillin. Azithromycin, Magic mouthwash, ibuprofen prescribed for home. Patient verbalizes understanding and agreement with treatment plan. Patient is medically cleared and stable for discharge. Discussed reasons to return to the emergency department. Instructed patient to follow up with primary care provider. Patient agrees with treatment plan. The patients vital signs are stable and the patient is stable for outpatient follow-up and treatment. Patient discharged home, stable and in no acute distress. 1037: Patient demanding her throat to be swabbed for strep throat. I discussed that we are treating her with antibiotics despite throat swab secondary to her left ear looking infected. She became agitated and demanded her throat swabbed. Rapid strep ordered. 1105: Rapid strep negative. Diagnosis Primary Impression: Left otitis media Qualified Code: H66.92 - Left otitis media, unspecified chronicity, unspecified otitis media type Additional Impression: Sore throat Referrals: Primary Care Physician Patient Instructions: General Instructions, Otitis Media (ED), Pharyngitis (ED) Departure Forms: Tests/Procedures, Work Release Enter return to work date: Sep 14, 2016 Additional Instructions: Take Antibiotics as prescribed and complete full course of antibiotics Throw away and change your toothbrush 24 hours after starting antibiotics Get plenty of sleep/rest Rest your voice Drink plenty of fluids to prevent dehydration Use warm saltwater gargles to soothe throat pain Use an air humidifier/turn off ceiling fans Use throat lozenges as needed for sore throat Use ibuprofen or acetaminophen as needed to relieve pain and fever Follow-up with your primary care provider within 2-4 days Return immediately to the emergency department with worsening of symptoms Med/Other Pt SpecificInfo: Prescription(s) given Scripts Ibuprofen 800 Mg [id number] Mg PO Q6HR PRN (PAIN) #30 TAB Ref 0 Prov:Tawnya Arriaga 09/12/16 Hskftqostnhjfsa-Itixlkpob-Evj-Alum-Simeth Liq (Magic Mouthwash Pediatric/Adult Liq)60 Ml Susp5 Ml SWISH-SPIT Q3HR PRN (SORE THROAT) #60 ML Ref 0 Each 5mL contains: Diphenydramine 4.5mg, Viscous Lidocaine 2% 10mg, Maalox Advanced Regular Strength 2.7ml Prov:Tawnya Arriaga 09/12/16 Azithromycin 500 Mg [id number] Mg PO DAILY #5 TAB Ref 0 Prov:Tawnya Arriaga 09/12/16 Disposition: 01 DISCHARGE HOME Condition: Stable Tawnya Arriaga Sep 12, 2016 10:23
[2016-09-12] MEDS ORDERED: IBUPROFEN 800 MG TAB PO ONE (10:30)
[2016-09-13] MEDS ORDERED: PRED50 PO (03:06)
[2016-09-13] MEDS ORDERED: LEVA750T9 PO (03:06)
== END 2016-09-12 11:15 | disposition home or self-care (01) ==
LOC: NEPK 09:50
DX: H66.92 Otitis media, unspecified, left ear (principal); J02.9 Acute pharyngitis, unspecified
CPT/HCPCS: 87081; 87880; 99284

== ENCOUNTER 2016-09-12 11:15 | Emergency (ER) | payer MEDICAID ==
[~2016-09-12] VITALS: Ht 162.6 cm; Wt 80.0 kg
[~2016-09-12 11:15] MED LIST changes: +AZIT500T2 PO; +IBUP800T23 PO; +MAGICPED SWISH-SPIT
[2016-09-12 11:16] VITALS: BP 146/99; PULSE 95; RESP 20; TEMP 98; O2SAT 97
--- NOTE | 2016-09-12 11:23 | PD ---
Physical Exam Date Seen by Provider: Sep 12, 2016 Time Seen by Provider: 11:22 Data Data Last Documented VS Vital Signs Date Time Temp Pulse Resp B/P Pulse Ox O2 Delivery O2 Flow Rate FiO2 09/12/16 11:16 98.0 95 20 146/99 97 Room Air [facility] Supervised Visit with MIRANDA: No Narrative Course 25 YO F with complaint of sore throat,SOB, difficulty swallowing since this AM. Seen earlier today. Vitals reviewed. Awaiting bed placement. Elissa Birch Sep 12, 2016 11:23
[2016-09-13] MEDS ORDERED: PRED50 PO (03:06)
[2016-09-13] MEDS ORDERED: LEVA750T9 PO (03:06)
== END 2016-09-12 12:00 | disposition left against medical advice (07) ==
LOC: NED 11:15
DX: J02.9 Acute pharyngitis, unspecified (principal); R06.02 Shortness of breath; R13.10 Dysphagia, unspecified
CPT/HCPCS: 99281

== ENCOUNTER 2016-09-12 23:00 | Emergency (ER) | payer MEDICAID ==
[~2016-09-12] VITALS: Ht 160 cm; Wt 85.0 kg
[2016-09-12 23:06] VITALS: BP 138/85; PULSE 111; RESP 16; TEMP 98.2
--- NOTE | 2016-09-12 23:22 | PD ---
HPI Chief Complaint: ENT Complaint Time Seen by Provider: 23:09 Travel History International Travel<30 days: No Contact w/Intl Traveler<30days: No Traveled to known affect area: No History of Present Illness HPI 25 years old female complains of sore throat and shortness of breath. Patient states that the symptoms started yesterday. Patient was seen in emergency room today and strep screen was negative. Patient was given prescription for Z-Michael. Patient states that she had persistent sore throat. Patient went to [facility] and was given prescription for Lortab. Patient states that she had persistent sore throat and started having trouble swallowing tonight. Patient states that she has intermittent cough productive cough for the past 2 days. Patient denies any fever chills. Patient denies any chest pain. Patient states that she has shortness of breath. Patient denies abdominal pain. Patient states that she vomited once this evening. Patient has history of HIV positive and has not been taking her anti retroviral medications recently. Patient also has history of asthma. Patient's not sure of her CD4 count. PFSH Past Medical History Anemia: Yes Asthma: Yes Autoimmune Disease: Yes (HIV Dx age 18) Cancer: No Cardiovascular Problems: No COPD: No Cerebrovascular Accident: No Diminished Hearing: No Endocrine: No Gastrointestinal Disorders: No Genitourinary: No Headaches: Yes Immune Disorder: No Implanted Vascular Access Dvce: No Musculoskeletal: No Neurologic: Yes Psychiatric: No Reproductive: No Respiratory: Yes (BRONCHITIS) Migraines: No Pneumonia: Yes Seizures: No Sleep Apnea: No Tetanus Vaccination: < 5 Years Influenza Vaccination: No ?: Not : 0 Para: 0 Miscarriage: 0 : 0 Past Surgical History Surgical History: No Previous Surgery AICD: No Arteriovenous Shunt: No Insulin Pump: No Joint Replacement: No Pacemaker: No Other Surgery: No Social History Alcohol Use: No Tobacco Use: No Substance Use: No Allergies-Medications (Allergen,Severity, Reaction): Coded Allergies: Amoxicillin (Verified Allergy, Intermediate, 09/12/16) *MDRO Multi-Drug Resistant Organism (Verified Allergy, Unknown, 09/12/16) MRSA 12/2012 Reported Meds & Prescriptions Reported Meds & Active Scripts Active Ibuprofen 800 Mg Tab 800 Mg PO Q6HR PRN Magic Mouthwash Pediatric/Adult Liq (Lidocaine/Diphenhydr/Alum/Mg/Simeth) 60 Ml Susp 5 Ml SWISH-SPIT Q3HR PRN Each 5mL contains: Diphenydramine 4.5mg, Viscous Lidocaine 2% 10mg, Maalox Advanced Regular Strength 2.7ml Azithromycin 500 Mg Tab 500 Mg PO DAILY Flomax (Tamsulosin HCl) 0.4 Mg Cap 0.4 Mg PO HS Bactrim DS (Sulfamethoxazole-Trimethoprim) 800-160 Mg Tab 1 Tab PO BID Percocet (Oxycodone-Acetaminophen) 5-325 mg Tab 1 Tab PO Q6H PRN Proair Hfa 8.5 GM Inh (Albuterol Sulfate) 90 Mcg/Act Aer 2 Puff INH Q4-6H PRN 108 mcg/actuation Review of Systems General / Constitutional: No: Fever Eyes: No: Visual changes HENT: Positive: Sore Throat, No: Headaches Cardiovascular: No: Chest Pain or Discomfort Respiratory: Positive: Cough, Shortness of Breath Gastrointestinal: No: Abdominal Pain Genitourinary: No: Dysuria Musculoskeletal: No: Pain Skin: No Rash Neurologic: No: Weakness Psychiatric: No: Depression Endocrine: No: Polydipsia Hematologic/Lymphatic: No: Easy Bruising Physical Exam Narrative GENERAL: Well-nourished, well-developed patient. SKIN: Focused skin assessment warm/dry. HEAD: Normocephalic. EYES: No scleral icterus. No injection or drainage. Throat: Mild erythematous with mild edema. No exudate. NECK: Supple, trachea midline. No JVD. Patient has mild anterior cervical lymphadenopathy. No meningismus CARDIOVASCULAR: Regular rate and rhythm without murmurs, gallops, or rubs. RESPIRATORY: Breath sounds equal bilaterally. No accessory muscle use. GASTROINTESTINAL: Abdomen soft, non-tender, nondistended. MUSCULOSKELETAL: No cyanosis, or edema. BACK: Nontender without obvious deformity. No CVA tenderness. Neurologic exam normal. Data Data Last Documented VS Vital Signs Date Time Temp Pulse Resp B/P Pulse Ox O2 Delivery O2 Flow Rate FiO2 09/12/16 23:07 16 09/12/16 23:06 98.2 111 138/85 Orders Complete Blood Count With Diff (09/12/16 23:15) Basic Metabolic Panel (Bmp) (09/12/16 23:15) Chest, Single Ap (09/12/16 23:15) Iv Access Insert/Monitor (09/12/16 23:15) Ecg Monitoring (09/12/16 23:15) Oximetry (09/12/16 23:15) Ed Urine Pregnancytest Poc (09/12/16 23:15) Ct Soft Tiss Neck W Iv Cont (09/12/16 ) Sodium Chlor 0.9% 1000 Ml Inj (Ns 1000 M (09/12/16 23:30) Dexamethasone Inj (Decadron Inj) (09/12/16 23:30) Ketorolac Inj (Toradol Inj) (09/12/16 23:30) Labs Laboratory Tests Test 09/12/16 23:35 White Blood Count 8.3 TH/MM3 Red Blood Count 4.15 MIL/MM3 Hemoglobin 11.6 GM/DL Hematocrit 35.8 % Mean Corpuscular Volume 86.1 FL Mean Corpuscular Hemoglobin 28.0 PG Mean Corpuscular Hemoglobin 32.5 % Concent Red Cell Distribution Width 16.1 % Platelet Count 52 TH/MM3 Mean Platelet Volume 11.5 FL Neutrophils (%) (Auto) 87.5 % Lymphocytes (%) (Auto) 6.2 % Monocytes (%) (Auto) 5.3 % Eosinophils (%) (Auto) 0.7 % Basophils (%) (Auto) 0.3 % Neutrophils # (Auto) 7.3 TH/MM3 Lymphocytes # (Auto) 0.5 TH/MM3 Monocytes # (Auto) 0.4 TH/MM3 Eosinophils # (Auto) 0.1 TH/MM3 Basophils # (Auto) 0.0 TH/MM3 CBC Comment AUTO DIFF Sodium Level 142 MEQ/L Potassium Level 3.7 MEQ/L Chloride Level 107 MEQ/L Carbon Dioxide Level 24.5 MEQ/L Anion Gap 11 MEQ/L Blood Urea Nitrogen 6 MG/DL Creatinine 0.79 MG/DL Estimat Glomerular Filtration 106 ML/MIN Rate Random Glucose 131 MG/DL Calcium Level 8.4 MG/DL [facility] Medical Decision Making Medical Screen Exam Complete: Yes Emergency Medical Condition: Yes Differential Diagnosis Differential diagnosis including pharyngitis, retropharyngeal abscess, bronchitis, pneumonia. Narrative Course 25 years old female with sore throat and dysphagia. Patient also has mild productive cough. Normal saline solution 1 L IV bolus. Toradol 30 mg IV. Decadron 8 mg IV. Sam Ramsay MD Sep 12, 2016 23:22
[2016-09-12] MEDS ORDERED: DEXAMETHASONE SOD PHOS 4 MG/ML VIAL IV PUSH ONE (23:30)
[2016-09-12] MEDS ORDERED: KETOROLAC TROMETHAMINE 30 MG/ML (IVP) VIAL IV PUSH ONE (23:30)
[2016-09-12] MEDS ORDERED: SODIUM CHLOR 0.9% 1000 ML INJ 1,000 ML IV ONE (23:30)
--- NOTE | 2016-09-12 23:41 | RADRPT ---
EXAM DATE/TIME: 09/12/2016 23:13 [facility] COMPARISON: CHEST SINGLE AP, May 04, 2016, 17:06. INDICATIONS : Pt has sore throat and shortness of breath MEDICAL HISTORY : HIV asthma SURGICAL HISTORY : None. ENCOUNTER: Initial ACUITY: 1 day PAIN SCORE: 5/10 LOCATION: Bilateral chest FINDINGS: A single view of the chest demonstrates the lungs to be symmetrically aerated without evidence of mas s, infiltrate or effusion. The cardiomediastinal contours are unremarkable. Osseous structures are intact. There are multiple old healed right-sided rib fractures again noted. CONCLUSION: No acute disease. There is no evidence of pneumonia. Leonard Duron MD on September 12, 2016 at 23:38 Board Certified Radiologist. This report was verified electronically.
[2016-09-12 23:51] LABS: AUTOMATED NEUTROPHIL # 7.3 TH/MM3 (1.8-7.7); BASOPHIL % 0.3 % (0.0-2.0); EOSINOPHIL # 0.1 TH/MM3 (0-0.4); EOSINOPHIL % 0.7 % (0.0-4.0); HEMATOCRIT 35.8 % (35.0-46.0); LYMPH % 6.2 % (9.0-44.0); LYMPHOCYTE # 0.5 TH/MM3 (1.0-4.8); MEAN CELL VOLUME 86.1 FL (80.0-100.0); MEAN CORPUSCULAR HGB CONC 32.5 % (32.0-36.0); MONO % 5.3 % (0.0-8.0); NEUT % 87.5 % (16.0-70.0); PLATELET COUNT 52 TH/MM3 (150-450); RED BLOOD COUNT 4.15 MIL/MM3 (4.00-5.30); RED CELL DISTRIBUTION WIDTH 16.1 % (11.6-17.2); WHITE BLOOD COUNT 8.3 TH/MM3 (4.0-11.0)
[2016-09-12 23:56] LABS: HEMO FLAGS AUTO DIFF
[2016-09-13 00:32] LABS: BICARBONATE 24.5 MEQ/L (21.0-32.0)
[2016-09-13 00:36] LABS: POTASSIUM 3.7 MEQ/L (3.5-5.1)
[2016-09-13] MEDS ORDERED: LEVOFLOXACIN 750 MG PREMIX INJ 150 ML IV ONE (01:15)
[2016-09-13] MEDS ORDERED: RESP: ALBUTEROL 2.5 MG/IPRATROPIUM 0.5 MG NEB (SCH) INH ONE (01:15)
[2016-09-13 01:16] VITALS: O2SAT 99
[2016-09-13] MEDS ORDERED: IOHEXOL 350 MG/ML 10 ML VIAL (for RAD DIAG) IV ONE (01:56)
[2016-09-13 01:57] LABS: SCAN/DIFF AUTO DIFF CONFIRMED
[2016-09-13 01:58] LABS: PLATELET ESTIMATE SMEAR LOW (NORMAL); PLATELET MORPHOLOGY ENLARGED (NORMAL)
--- NOTE | 2016-09-13 02:41 | RADRPT ---
EXAM DATE/TIME: 09/13/2016 01:55 [facility] COMPARISON: No previous studies available for comparison. INDICATIONS : Sore throat; possible abscess. IV CONTRAST: 71 cc Omnipaque 350 (iohexol) IV RADIATION DOSE: 18.78 CTDIvol (mGy) MEDICAL HISTORY : HIV. SURGICAL HISTORY : None. ENCOUNTER: Initial ACUITY: 2 days PAIN SCALE: 6/10 LOCATION: neck TECHNIQUE: Volumetric scanning of the neck was performed. Using automated exposure control and adjustment of th e mA and/or kV according to patient size, radiation dose was kept as low as reasonably achievable to obtain optimal diagnostic quality images. FINDINGS: NASOPHARYNX: The nasopharyngeal airway has a normal configuration. No mucosal thickening or mass is seen. OROPHARYNX: The intrinsic muscles of the tongue are symmetric. The tonsillar pillars are intact. The prevertebr al soft tissues are not thickened. LARYNX: The supraglottic, glottic, and infraglottic structures are intact. PARAPHARYNGEAL: There is mild asymmetric fullness in the left parapharyngeal region with no visualized abscess. SALIVARY GLANDS: The parotid and submandibular glands are intact. LYMPH NODES: No enlarged or necrotic-appearing nodes. THYROID: Homogeneous enhancement without evidence of nodule. BONES: Unremarkable. Mucosal thickening is noted in the maxillary sinuses and ethmoidal air cells bilaterall y. CONCLUSION: Mild asymmetric fullness in the left parapharyngeal region with no visualized abscess . Bilateral mucosal thickening in the maxillary sinuses and ethmoidal cells. Leonard Duron MD on September 13, 2016 at 2:34 Board Certified Radiologist. This report was verified electronically.
--- NOTE | 2016-09-13 02:55 | PD ---
Physical Exam Narrative GENERAL: Well-nourished, well-developed patient. hoarse voice noted SKIN: Warm and dry. HEAD: Normocephalic EYES: No injection or drainage. ENT: No nasal drainage noted. NECK: Supple, trachea midline. CARDIOVASCULAR: Regular rate and rhythm RESPIRATORY: no increased effort. No accessory muscle use. NEUROLOGICAL: Awake and alert. Motor and sensory grossly within normal limits. Normal speech. Data Data Last Documented VS Vital Signs Date Time Temp Pulse Resp B/P Pulse Ox O2 Delivery O2 Flow Rate FiO2 09/13/16 01:16 99 Room Air 09/12/16 23:07 16 09/12/16 23:06 98.2 111 138/85 Orders Complete Blood Count With Diff (09/12/16 23:15) Basic Metabolic Panel (Bmp) (09/12/16 23:15) Chest, Single Ap (09/12/16 23:15) Iv Access Insert/Monitor (09/12/16 23:15) Ecg Monitoring (09/12/16 23:15) Oximetry (09/12/16 23:15) Ed Urine Pregnancytest Poc (09/12/16 23:15) Ct Soft Tiss Neck W Iv Cont (09/12/16 ) Sodium Chlor 0.9% 1000 Ml Inj (Ns 1000 M (09/12/16 23:30) Dexamethasone Inj (Decadron Inj) (09/12/16 23:30) Ketorolac Inj (Toradol Inj) (09/12/16 23:30) Albuterol-Ipratropium Neb (Duoneb Neb) (09/13/16 01:15) Levofloxacin 750 Mg Premix Inj (Levaquin (09/13/16 01:15) Iohexol 350 Inj (Omnipaque 350 Inj) (09/13/16 01:56) Labs Laboratory Tests Test 09/12/16 23:35 White Blood Count 8.3 TH/MM3 Red Blood Count 4.15 MIL/MM3 Hemoglobin 11.6 GM/DL Hematocrit 35.8 % Mean Corpuscular Volume 86.1 FL Mean Corpuscular Hemoglobin 28.0 PG Mean Corpuscular Hemoglobin 32.5 % Concent Red Cell Distribution Width 16.1 % Platelet Count 52 TH/MM3 Mean Platelet Volume 11.5 FL Neutrophils (%) (Auto) 87.5 % Lymphocytes (%) (Auto) 6.2 % Monocytes (%) (Auto) 5.3 % Eosinophils (%) (Auto) 0.7 % Basophils (%) (Auto) 0.3 % Neutrophils # (Auto) 7.3 TH/MM3 Lymphocytes # (Auto) 0.5 TH/MM3 Monocytes # (Auto) 0.4 TH/MM3 Eosinophils # (Auto) 0.1 TH/MM3 Basophils # (Auto) 0.0 TH/MM3 CBC Comment AUTO DIFF Differential Comment AUTO DIFF CONFIRMED Platelet Estimate LOW Platelet Morphology Comment ENLARGED Sodium Level 142 MEQ/L Potassium Level 3.7 MEQ/L Chloride Level 107 MEQ/L Carbon Dioxide Level 24.5 MEQ/L Anion Gap 11 MEQ/L Blood Urea Nitrogen 6 MG/DL Creatinine 0.79 MG/DL Estimat Glomerular Filtration 106 ML/MIN Rate Random Glucose 131 MG/DL Calcium Level 8.4 MG/DL [facility] Supervised Visit with MIRANDA: No Interpretation(s) Last 24 hours Impressions Chest X-Ray 09/12/16 2315 Signed Impressions: Service Date/Time: Monday, September 12, 2016 23:13 - CONCLUSION: No acute disease. There is no evidence of pneumonia. Leonard Duron MD Neck CT 09/12/16 0000 Signed Impressions: Service Date/Time: Tuesday, September 13, 2016 01:55 - CONCLUSION: Mild asymmetric fullness in the left parapharyngeal region with no visualized abscess. Bilateral mucosal thickening in the maxillary sinuses and ethmoidal cells. Leonard Duron MD Narrative Course Signed over to me to follow CT scan and admit. CT without abscess. We will admit to medicine. Patient updated Advised patient that hospitalist states she does not meet criteria for observation, will provide with steroid and antibiotics, given return instructions Physician Communication Physician Communication dr culp states patient doesn't meet criteria for observation and to dc patient Diagnosis Primary Impression: Pharyngitis Qualified Code: J02.9 - Pharyngitis, unspecified etiology Patient Instructions: General Instructions Additional Instruction: stop azithromycin, fill levaquin and prednisone, alternate tylenol and motrin, follow with primary thursday Med/Other Pt SpecificInfo: Prescription(s) given, Existing Med Changed ( stop azithromycin) Scripts Prednisone 50 Mg Tab50 Mg PO DAILY #5 TAB Prov:Maty Pereyra MD 09/13/16 Levofloxacin (Levaquin)750 Mg Hyiyco151 Mg PO DAILY #7 Prov:Maty Pereyra MD 09/13/16 Disposition: 01 DISCHARGE HOME Condition: Stable Maty Pereyra MD Sep 13, 2016 02:55
[2016-09-13] MEDS ORDERED: LEVA750T9 PO (03:06)
[2016-09-13] MEDS ORDERED: PRED50 PO (03:06)
== END 2016-09-13 04:05 | disposition home or self-care (01) ==
LOC: NEPD 23:00 → NEPC 09-13 04:05
DX: J02.9 Acute pharyngitis, unspecified (principal); R06.02 Shortness of breath; R05 Cough
CPT/HCPCS: 70491; 71010; 80048; 84703; 85025; 94664; 96361; 96365; 96366; 96375; 99285; J1100; J1885; J1956; J7030; Q9967

== ENCOUNTER 2016-10-28 09:27 | Emergency (ER) | payer MEDICAID ==
[~2016-10-28] VITALS: Ht 162.6 cm; Wt 72.0 kg
[~2016-10-28 09:27] MED LIST changes: +LEVA750T9 PO; +PRED50 PO
[2016-10-28 09:29] VITALS: BP 145/108; PULSE 91; RESP 15; TEMP 98.5; O2SAT 98
--- NOTE | 2016-10-28 10:17 | PD ---
HPI Chief Complaint: Headache Time Seen by Provider: 10:03 Travel History International Travel<30 days: No Contact w/Intl Traveler<30days: No Traveled to known affect area: No History of Present Illness HPI 26yo F with PMH of HIV not on medication presents to the ED with c/o right sided headache for 5 days. States it kind of feels like migraine that she had before. +Photophobia. Denies any fever, neck pain, n/v, abdominal pain, focal weakness or numbness. PFSH Past Medical History Anemia: Yes Asthma: Yes Autoimmune Disease: Yes (HIV Dx age 18) Cancer: No Cardiovascular Problems: No COPD: No Cerebrovascular Accident: No Diminished Hearing: No Endocrine: No Gastrointestinal Disorders: No Genitourinary: No Headaches: Yes Immune Disorder: No Implanted Vascular Access Dvce: No Musculoskeletal: No Neurologic: Yes Psychiatric: No Reproductive: No Respiratory: Yes (ASTHMA) Migraines: No Pneumonia: Yes Seizures: No Sleep Apnea: No Influenza Vaccination: No ?: Not : 0 Para: 0 Miscarriage: 0 : 0 Past Surgical History Surgical History: No Previous Surgery AICD: No Arteriovenous Shunt: No Insulin Pump: No Joint Replacement: No Pacemaker: No Other Surgery: No Social History Alcohol Use: No Tobacco Use: No Substance Use: No Allergies-Medications (Allergen,Severity, Reaction): Coded Allergies: Amoxicillin (Verified Allergy, Intermediate, 10/28/16) *MDRO Multi-Drug Resistant Organism (Verified Allergy, Unknown, 10/28/16) MRSA 12/2012 Reported Meds & Prescriptions Reported Meds & Active Scripts Active Tylenol (Acetaminophen) 325 Mg Tab 650 Mg PO Q6H PRN Proair Hfa 8.5 GM Inh (Albuterol Sulfate) 90 Mcg/Act Aer 2 Puff INH Q4-6H PRN 108 mcg/actuation Review of Systems Except as stated in HPI: all other systems reviewed are Neg Physical Exam Narrative GENERAL: 26yo F in mild distress. SKIN: Focused skin assessment warm/dry. HEAD: Atraumatic. Normocephalic. EYES: Pupils equal and round. No scleral icterus. No injection or drainage. ENT: No nasal bleeding or discharge. Mucous membranes pink and moist. NECK: No nuchal rigidity. CARDIOVASCULAR: Regular rate and rhythm. No murmur appreciated. RESPIRATORY: No accessory muscle use. Clear to auscultation. Breath sounds equal bilaterally. GASTROINTESTINAL: Abdomen soft, non-tender, nondistended. MUSCULOSKELETAL: No obvious deformities. No clubbing. No cyanosis. No edema. NEUROLOGICAL: Awake and alert. No obvious cranial nerve deficits. Motor grossly within normal limits. Normal speech. PSYCHIATRIC: Appropriate mood and affect; insight and judgment normal. Data Data Last Documented VS Vital Signs Date Time Temp Pulse Resp B/P Pulse Ox O2 Delivery O2 Flow Rate FiO2 10/28/16 09:29 98.5 91 15 145/108 98 Orders Ed Urine Pregnancytest Poc (10/28/16 10:09) Ct Brain W/O Iv Contrast(Rout) (10/28/16 ) Ondansetron Odt (Zofran Odt) (10/28/16 11:15) Acetaminophen (Tylenol) (10/28/16 11:15) Prochlorperazine Inj (Compazine Inj) (10/28/16 11:45) Ketorolac Inj (Toradol Inj) (10/28/16 12:30) MDM Medical Decision Making Medical Screen Exam Complete: Yes Emergency Medical Condition: Yes Differential Diagnosis Migraine headache vs. tension headache Narrative Course 26yo F with what sounds like migraine headache. However, pt has HIV and has not been taking medication. CT brain showed no acute intracranial abnormality. Persistent opacification of bilateral frontal and ethmoid sinuses. Pt clinically does not have tenderness to palpation in the frontal sinuses so will not give antibiotics. Pt given compazine and toradol with resolution of headache. Return precautions given. She is well appearing with no focal neurologic deficits. Diagnosis Primary Impression: Headache Qualified Code: R51 - Acute nonintractable headache, unspecified headache type Patient Instructions: General Instructions Departure Forms: Tests/Procedures Additional Instructions: Please follow up with your PMD in 1-2 days. Return to the ED if symptoms worsen. Med/Other Pt SpecificInfo: Prescription(s) given Scripts Acetaminophen (Tylenol)325 Mg [id number] Mg PO Q6H PRN (PAIN SCALE 1 TO 4) #20 TAB Ref 0 Prov:Mattie Hamlin DO 10/28/16 Disposition: 01 DISCHARGE HOME Condition: Stable Mattie Hamlin Oct 28, 2016 10:17
[2016-10-28] MEDS ORDERED: ONDANSETRON ODT 4 MG TAB PO ONE (11:15)
[2016-10-28] MEDS ORDERED: ACETAMINOPHEN 325 MG TAB PO ONE (11:15)
[2016-10-28] MEDS ORDERED: PROCHLORPERAZINE INJ 10 MG/2 ML VIAL IV PUSH ONE (11:45)
--- NOTE | 2016-10-28 11:54 | RADRPT ---
EXAM DATE/TIME: 10/28/2016 11:33 [facility] COMPARISON: CT BRAIN W/O CONTRAST, March 26, 2014, 16:14. INDICATIONS : Cephalgia x 5 days. RADIATION DOSE: 31.99 CTDIvol (mGy) MEDICAL HISTORY : HIV. SURGICAL HISTORY : None. ENCOUNTER: Initial ACUITY: 4 - 6 days PAIN SCALE: 10/10 LOCATION: cranial TECHNIQUE: Multiple contiguous axial images were obtained of the head. Using automated exposure control and adj ustment of the mA and/or kV according to patient size, radiation dose was kept as low as reasonably a chievable to obtain optimal diagnostic quality images. DICOM format image data is available electro nically for review and comparison. FINDINGS: CEREBRUM: The ventricles are normal for age. No evidence of midline shift, mass lesion, hemorrhage or acute in farction. No extra-axial fluid collections are seen. POSTERIOR FOSSA: The cerebellum and brainstem are intact. The 4th ventricle is midline. The cerebellopontine angle i s unremarkable. EXTRACRANIAL: The visualized portion of the orbits is intact. There is persistent opacification of the bilateral et hmoid and frontal sinuses. SKULL: The calvaria is intact. No evidence of skull fracture. CONCLUSION: 1. No acute intracranial abnormality. 2. Persistent opacification of the bilateral frontal and ethmoid sinuses. Tawanda Vasquez MD on October 28, 2016 at 11:51 Board Certified Radiologist. This report was verified electronically.
[2016-10-28] MEDS ORDERED: KETOROLAC TROMETHAMINE 30 MG/ML (IVP) VIAL IV PUSH ONE (12:30)
[2016-10-28] MEDS ORDERED: TYLE325T PO (12:30)
== END 2016-10-28 12:47 | disposition home or self-care (01) ==
LOC: NEPD 09:27
DX: R51 Headache (principal); H53.149 Visual discomfort, unspecified; D64.9 Anemia, unspecified; J45.909 Unspecified asthma, uncomplicated; Z21 Asymptomatic human immunodeficiency virus [HIV] infection status; Z79.82 Long term (current) use of aspirin; Z79.899 Other long term (current) drug therapy; Z88.0 Allergy status to penicillin
CPT/HCPCS: 70450; 84703; 96374; 96375; 99285; J0780; J1885

== ENCOUNTER 2017-03-08 16:09 | Emergency (ER) | payer MEDICAID ==
[~2017-03-08] VITALS: Ht 160 cm; Wt 75.0 kg
[~2017-03-08 16:09] MED LIST changes: -AZIT500T2 PO; -BACT800T5 PO; -IBUP800T23 PO; -LEVA750T9 PO; -MAGICPED SWISH-SPIT; -PERC5TAB12 PO; -PRED50 PO; -TAMS5CAP PO; +TYLE325T PO
[2017-03-08 16:12] VITALS: BP 147/84; PULSE 103; RESP 20; TEMP 99; O2SAT 96
[2017-03-08] MEDS ORDERED: IBUPROFEN 800 MG TAB PO ONE (17:45)
[2017-03-08] MEDS ORDERED: predniSONE 20 MG TAB PO ONE (17:45)
--- NOTE | 2017-03-08 17:45 | PD ---
HPI Chief Complaint: Respiratory Distress Time Seen by Provider: 17:23 Travel History International Travel<30 days: No Contact w/Intl Traveler<30days: No Traveled to known affect area: No History of Present Illness HPI 26-year-old female, with history of asthma, presents to the emergency Department with complaint of chest tightness, shortness of breath, wheezing for the last 2-3 days. Reports coughing, nasal congestion, bilateral ear pain. Denies throat pain. Denies fevers, vomiting. Has used her albuterol nebulizer and inhaler with no relief of symptoms. Symptoms are moderate in severity. Describes her pain as a pressure. Rates her pain 7/10. Has not taken any medications or tried any treatments to alleviate her symptoms of pain. History of asthma. Allergies to amoxicillin. Does not have an established primary care provider. Has no other medical complaints. No other modifying factors or associated signs and symptoms. PFSH Past Medical History Anemia: Yes Asthma: Yes Autoimmune Disease: Yes (HIV Dx age 18) Cancer: No Cardiovascular Problems: No COPD: No Cerebrovascular Accident: No Diminished Hearing: No Endocrine: No Gastrointestinal Disorders: No Genitourinary: No Headaches: Yes Immune Disorder: No Implanted Vascular Access Dvce: No Musculoskeletal: No Neurologic: Yes Psychiatric: No Reproductive: No Respiratory: Yes (ASTHMA) Migraines: No Pneumonia: Yes Seizures: No Sleep Apnea: No ?: Not LMP: 02/04/17 : 0 Para: 0 Miscarriage: 0 : 0 Past Surgical History AICD: No Arteriovenous Shunt: No Insulin Pump: No Joint Replacement: No Pacemaker: No Other Surgery: No Social History Alcohol Use: No Tobacco Use: No Substance Use: No Allergies-Medications (Allergen,Severity, Reaction): Coded Allergies: amoxicillin (Unverified Allergy, Intermediate, 03/08/17) *MDRO Multi-Drug Resistant Organism (Verified Allergy, Unknown, 03/08/17) MRSA 12/2012 Reported Meds & Prescriptions Reported Meds & Active Scripts Active Deltasone (Prednisone) 20 Mg Tab 40 Mg PO DAILY 4 Days start 03/09/2017 Ibuprofen 800 Mg Tab 800 Mg PO Q6HR PRN Azithromycin 500 Mg Tab 500 Mg PO DAILY Tylenol (Acetaminophen) 325 Mg Tab 650 Mg PO Q6H PRN Proair Hfa 8.5 GM Inh (Albuterol Sulfate) 90 Mcg/Act Aer 2 Puff INH Q4-6H PRN 108 mcg/actuation Review of Systems Except as stated in HPI: all other systems reviewed are Neg Physical Exam Narrative GENERAL: Well-nourished, well-developed black female patient, in no acute distress; afebrile, nontoxic-appearing SKIN: Warm and dry. HEAD: Atraumatic. Normocephalic. EYES: Pupils equal and round. No scleral icterus. No injection or drainage. ENT: Mucosa pink and moist. No erythema or exudates. No uvular edema. No uvular , palatal, or tonsillar deviation. Airway patent. Nares without nasal blood, purulent drainage or septal hematoma. EARS: Bilateral pinnae and external canals appear within normal limits. Bilateral tympanic membranes with erythema, dullness, and loss of landmarks; without perforation. NECK: Trachea midline. No lymphadenopathy. CARDIOVASCULAR: Regular rate and rhythm. No murmur appreciated. RESPIRATORY: No accessory muscle use. Lungs with decreased lung sound in bilateral bases. Breath sounds equal bilaterally. No retractions or tachypnea. No Audible wheezing noted. GASTROINTESTINAL: Abdomen soft, non-tender, nondistended. Hepatic and splenic margins not palpable. Bowel sounds are active 4 quadrants. MUSCULOSKELETAL: No obvious deformities. No clubbing. No cyanosis. No edema. NEUROLOGICAL: Awake and alert. Oriented 3. No obvious cranial nerve deficits. Motor grossly within normal limits. Normal speech. Moves all extremities. 5/5 strength to all extremities. PSYCHIATRIC: Appropriate mood and affect; insight and judgment normal. Data Data Last Documented VS Vital Signs Date Time Temp Pulse Resp B/P (MAP) Pulse Ox O2 Delivery O2 Flow Rate FiO2 03/08/17 18:34 16 03/08/17 17:14 98 Room Air 03/08/17 16:12 99.0 103 147/84 (105) Orders Orders Prednisone (Deltasone) (03/08/17 17:45) Albuterol-Ipratropium Neb (Duoneb Neb) (03/08/17 17:45) Ibuprofen (Motrin) (03/08/17 17:45) MDM Medical Decision Making Medical Screen Exam Complete: Yes Emergency Medical Condition: Yes Medical Record Reviewed: Yes Differential Diagnosis Asthma exacerbation, upper respiratory infection, viral illness, otitis media Narrative Course 26-year-old exam consistent with bilateral otitis media and asthma exacerbation. DuoNeb 3 and Deltasone administered in the ER. Patient penicillin allergic. 1838: Patient reports improvement in symptoms. Denies chest tightness or shortness of breath. Lungs are clear and equal throughout with Improved breath sounds. Azithromycin, Deltasone, ibuprofen, Tessalon Perles prescribed for home. Diagnosis Primary Impression: Bilateral otitis media Qualified Codes: H66.93 - Otitis media, unspecified, bilateral Additional Impression: Asthma exacerbation Qualified Codes: J45.901 - Unspecified asthma with (acute) exacerbation Referrals: Primary Care Physician Patient Instructions: Asthma (ED), General Instructions, Serous Otitis Media ( ED) Additional Instructions: Antibiotics as prescribed [id number] cough/cold medications as directed and as needed for symptom management Use albuterol inhaler as needed for shortness of breath and/or wheezing Take oral steroids as prescribed and complete full course Avoid asthma triggers such as smoking cigarettes, second hand smoke, dust, known allergens Follow-up with primary care provider Return to emergency department immediately with worsening of symptoms Med/Other Pt SpecificInfo: Prescription(s) given Scripts Prednisone (Deltasone) 20 Mg Tab 40 MG PO DAILY for 4 Days, #8 TAB 0 Refills start 03/09/2017 Prov: Tawnya Arriaga 03/08/17 Ibuprofen (Ibuprofen) 800 Mg Tab 800 MG PO Q6HR Y for PAIN, #30 TAB 0 Refills Prov: Tawnya Arriaga 03/08/17 Azithromycin (Azithromycin) 500 Mg Tab 500 MG PO DAILY for Infection, #5 TAB 0 Refills Prov: Tawnya Arriaga 03/08/17 Disposition: 01 DISCHARGE HOME Condition: Stable Tawnya Arriaga Mar 08, 2017 17:45
[2017-03-08] MEDS ORDERED: PRED-503 PO (17:49)
[2017-03-08] MEDS ORDERED: AZIT500T2 PO (17:49)
[2017-03-08] MEDS ORDERED: IBUP1TAB7 PO (17:49)
[2017-03-08] MEDS: RESP: ALBUTEROL 2.5 MG/IPRATROPIUM 0.5 MG NEB (SCH) INH (17:50)
[2017-03-08 18:34] VITALS: RESP 16
== END 2017-03-08 18:53 | disposition home or self-care (01) ==
LOC: NEPD 16:09
DX: H66.93 Otitis media, unspecified, bilateral (principal); J45.901 Unspecified asthma with (acute) exacerbation; D64.9 Anemia, unspecified; Z21 Asymptomatic human immunodeficiency virus [HIV] infection status; Z79.51 Long term (current) use of inhaled steroids
CPT/HCPCS: 94664; 99285; J7512

== ENCOUNTER 2017-04-17 14:12 | Emergency (ER) | payer MEDICAID ==
[~2017-04-17] VITALS: Ht 162.6 cm; Wt 68.2 kg
[~2017-04-17 14:12] MED LIST changes: +AZIT500T2 PO; +IBUP1TAB7 PO; +PRED-503 PO
[2017-04-17 14:15] VITALS: BP 156/74; PULSE 86; RESP 12; TEMP 99.8; O2SAT 92
[2017-04-17] MEDS: RESP: ALBUTEROL 2.5 MG/IPRATROPIUM 0.5 MG NEB (SCH) INH (15:04)
--- NOTE | 2017-04-17 15:48 | RADRPT ---
EXAM DATE/TIME: 04/17/2017 15:33 [facility] COMPARISON: CHEST PA & LAT, May 24, 2016, 3:08. INDICATIONS : Wheezing. MEDICAL HISTORY : asthma, bronchitis SURGICAL HISTORY : None. ENCOUNTER: Initial ACUITY: 2 days PAIN SCORE: 10/10 LOCATION: Bilateral chest FINDINGS: PA and lateral views of the chest demonstrate a normal-sized cardiac silhouette. There is no effusion , consolidation, or pneumothorax. The bones and soft tissues demonstrate no acute abnormality. There are old healed right rib fractures. CONCLUSION: No acute cardiopulmonary abnormality is identified. Cristino Fong MD on April 17, 2017 at 15:43 Board Certified Radiologist. This report was verified electronically.
--- NOTE | 2017-04-17 22:29 | PD ---
Physical Exam Date Seen by Provider: Apr 17, 2017 Time Seen by Provider: 18:07 Narrative 26-year-old female presents to the emergency department for evaluation of shortness of breath that started last night. She denies cough or fevers. She reports history of asthma and bronchitis. Patient is currently 01/13. Data Data Last Documented VS Vital Signs Date Time Temp Pulse Resp B/P (MAP) Pulse Ox O2 Delivery O2 Flow Rate FiO2 04/17/17 18:07 04/17/17 14:15 99.8 86 12 92 Orders Orders Chest, Pa & Lat (04/17/17 14:53) Albuterol-Ipratropium Neb (Duoneb Neb) (04/17/17 15:00) MDM Supervised Visit with MIRANDA: No Narrative Course 26-year-old female presents to the emergency department for evaluation of breath history of asthma. On exam, she does have expiratory wheezes noted throughout. Patient is initially seen and evaluated in triage. She is given DuoNeb 3 chest x-ray is ordered and pending. Patient left AGAINST MEDICAL ADVICE before she can be placed in a medical bed. Diagnosis Primary Impression: Left against medical advice Additional Impression: Asthma exacerbation Qualified Codes: J45.901 - Unspecified asthma with (acute) exacerbation Disposition: 07 AGAINST MEDICAL ADVICE Nini Martin Apr 17, 2017 22:29
== END 2017-04-17 18:28 | disposition left against medical advice (07) ==
LOC: NED 14:12
DX: J45.901 Unspecified asthma with (acute) exacerbation (principal)
CPT/HCPCS: 71046; 94640; 94664; 99285